=== PATIENT | male | born 1955 | race Caucasian/White ===

== ENCOUNTER 2024-02-23 12:42 | Emergency (ER) | payer OTHER, MEDICAID ==
[~2024-02-23] VITALS: Ht 172.7 cm; Wt 72.6 kg
[2024-02-23 12:52] VITALS: O2SAT 100
[2024-02-23] MEDS ORDERED: humalog (12:52)
[2024-02-23] MEDS: ACETAMINOPHEN 325MG TABLET PO STA (13:25)
[2024-02-23 13:28] LABS: HEMOGLOBIN. 10.7 g/dL (14.0-18.0); MEAN CORPUSCULAR HEMOGLOBIN 25.4 pg (28.0-32.0); MEAN CORPUSCULAR HGB CONC 33.4 g/dL (31.0-37.0); MEAN CORPUSCULAR VOLUME 76.1 fL (80.0-94.0); MEAN PLATELET VOLUME 8.5 fl (7.4-10.4); PLATELET 267 x1000/uL (130-400); RED BLOOD CELL COUNT 4.21 mill/uL (4.7-6.1); WHITE BLOOD COUNT 12.8 x1000/uL (4.5-11.0)
[2024-02-23 13:29] LABS: DIFFERENTIAL COMMENT 1
[2024-02-23 13:31] LABS: CHLORIDE 99 mEq/L (98-107); POTASSIUM 3.8 mEq/L (3.5-5.1); SODIUM 137 mEq/L (136-145)
[2024-02-23 13:32] LABS: CARBON DIOXIDE 29 mEq/L (21-32)
[2024-02-23 13:33] LABS: CALCIUM 9.4 mg/dL (8.7-10.4)
[2024-02-23 13:37] LABS: CREATININE 3.2 mg/dL (0.6-1.3); GLUCOSE 115 mg/dL (70-105)
[2024-02-23 13:38] LABS: UREA NITROGEN BLOOD 84 mg/dL (9-23)
[2024-02-23 13:39] LABS: PARTIAL THROMBOPLASTIN TIME 26.3 sec (23.4-31.0); PROTHROMBIN TIME 10.7 sec (9.6-11.0); TROPONIN I HIGH SENSITIVITY 21 ng/L (3.0-53)
[2024-02-23 13:41] LABS: ETHANOL BLOOD < 10 mg/dL (<10)
[2024-02-23 14:08] LABS: ANISOCYTOSIS 1+; MICROCYTOSIS 1+; PLATELET ESTIMATE NORMAL
[2024-02-23 15:30] LABS: TROPONIN I HIGH SENSITIVITY 19 ng/L (3.0-53)
[2024-02-23] MEDS: MORPHINE SULFATE 2 MG/ML CPJ (NOT FOR IM USE) IV ONE (16:29)
[2024-02-23 18:00] VITALS: BP 146/76; PULSE 77; RESP 16; TEMP 98.4
== END 2024-02-23 19:08 | disposition admitted as inpatient to this hospital (09) ==
LOC: ER 14:11 → 5WST 15:36 → UNDOADMIN 15:36 → EDBEDREQ 15:44 → EDBEDREQTM 15:44 → UNDODISIN 19:16
DX: R55 Syncope and collapse (principal); E16.1 Other hypoglycemia; R79.89 Other specified abnormal findings of blood chemistry; I12.0 Hypertensive chronic kidney disease with stage 5 chronic kidney disease or end stage renal disease; E11.9 Type 2 diabetes mellitus without complications; Z99.2 Dependence on renal dialysis; N18.6 End stage renal disease
CPT/HCPCS: 80048; 80320; 82962; 83880; 83605; 83690; 85025; 85610; 85730; 84484; 36415; 71045; 70450; 96374; 99285; J2270; G0480

== ENCOUNTER 2025-04-19 16:38 | Emergency (ER) | payer OTHER, MEDICAID ==
[~2025-04-19] VITALS: Ht 172.7 cm; Wt 74.0 kg
[~2025-04-19 16:38] MED LIST: humalog
[2025-04-19 16:45] VITALS: O2SAT 100
[2025-04-19] MEDS: ACETAMINOPHEN 325MG TABLET PO ONE (17:36)
[2025-04-19] MEDS: HYDRALAZINE 20MG/ML VIAL IV ONE (17:36)
[2025-04-19 17:39] LABS: BASOPHILS % 0.9 % (0.0-2.0); EOSINOPHILS % 2.7 % (0.0-5.0); HEMATOCRIT. 31.9 % (42.0-52.0); HEMOGLOBIN. 10.5 g/dL (14.0-18.0); LYMPHOCYTES % 19.0 % (20.0-50.0); MEAN PLATELET VOLUME 9.4 fl (7.4-10.4); MONOCYTES % 11.3 % (2.0-8.0); NEUTROPHILS % 66.1 % (40.0-76.0); PLATELET 132 x1000/uL (130-400); RED BLOOD CELL COUNT 3.78 mill/uL (4.7-6.1); RED CELL DISTRIBUTION WIDTH 16.2 % (11.6-14.6)
[2025-04-19 17:50] LABS: INR 1.0
[2025-04-19 18:05] LABS: CREATININE 2.7 mg/dL (0.6-1.3); UREA NITROGEN BLOOD 25 mg/dL (9-23)
[2025-04-19 18:06] LABS: TROPONIN I HIGH SENSITIVITY < 4 ng/L (3.0-53)
[2025-04-19] MEDS: LABETALOL 5MG/ML 4ML INJ IV ONE (19:47)
[2025-04-19 20:08] VITALS: TEMP 36.7
[2025-04-19 23:50] VITALS: BP 172/74; PULSE 56; RESP 11; O2SAT 98
== END 2025-04-20 | disposition home or self-care (01) ==
LOC: ER 16:38
DX: I16.0 Hypertensive urgency (principal); R42 Dizziness and giddiness; I12.0 Hypertensive chronic kidney disease with stage 5 chronic kidney disease or end stage renal disease; N18.6 End stage renal disease; E11.22 Type 2 diabetes mellitus with diabetic chronic kidney disease; E87.8 Other disorders of electrolyte and fluid balance, not elsewhere classified; Z99.2 Dependence on renal dialysis
CPT/HCPCS: 99291; 96374; 70450; 96375; 80048; 83880; 85025; 85610; 84484; 36415; 71045; 93005; J0360; J3490